=== PATIENT | female | born 1935 | race Caucasian/White ===

== ENCOUNTER 2018-07-22 10:07 | Day surgery (SDC) | payer MEDICARE ==
[2018-07-22] MEDS ORDERED: ONDANSETRON HCL IV 4 MG/2 ML VIAL IVP ONE (10:08)
[2018-07-22] MEDS ORDERED: SEVOFLURANE 250 ML INH ONE (10:08)
[2018-07-22] MEDS ORDERED: ROCURONIUM BROMIDE 50MG/5ML VIAL IV ONE (10:08)
[2018-07-22] MEDS ORDERED: BUPIVACAINE 0.25% W/EPI MPF 30ML VIAL IVP ONE (10:08)
[2018-07-22] MEDS ORDERED: FENTANYL PF 100MCG/2ML VIAL IV ONE (10:08)
[2018-07-22] MEDS ORDERED: PROPOFOL 10 MG/ML VIAL IV ONE (10:08)
[2018-07-22] MEDS ORDERED: LIDOCAINE 2% MDV (20MG/ML) 20ML VIAL IV ONE (10:08)
[2018-07-22] MEDS ORDERED: SUCCINYLCHOLINE 20 MG/ML 10ML IVP ONE (10:08)
[2018-07-22] MEDS: ONDANSETRON HCL IV 4 MG/2 ML VIAL IV ONE (10:34)
[2018-07-22] MEDS: SODIUM CHLORIDE 0.9% 500 ML IV ONE (10:34)
--- NOTE | 2018-07-22 10:34 | Emergency Department Record ---
History of Present Illness - General Chief complaint: Dehydration Stated complaint: DEHYDRATED Time Seen by Provider: 07/22/18 10:21 Source: Patient Mode of Arrival: Ambulatory Limitations: No limitations - History of Present Illness Initial comments: The patient is here due to diffuse AP for 2-3 days with intermittent nausea, vomiting, and loose stools. She also feels like she has abdominal bloating. The patient has had no abdominal surgeries in the past and never had a colononoscopy. She also has no PCP and takes no medicines. MD Complaint: Generalized weakness Onset/Timin -: Days(s) Severity: Moderate Severity scale (1-10): 5 Quality: Aching - [place] Coma Scale Eye Response: (4) Open spontaneously Motor Response: (6) Obeys commands Verbal Response: (5) Oriented Orly Total: 15 - Related Data Home Medications Medication Instructions Recorded Confirmed Last Taken No Home Med [NO HOME MEDS] 07/22/18 07/22/18 Unknown Allergies Allergy/AdvReac Type Severity Reaction Status Date / Time No Known Drug Allergies Allergy Verified 07/22/18 10:20 Travel Screening - Travel/Exposure Within Last 30 Days Have you traveled within the last 30 days?: No - Travel/Exposure Within Last Year Have you traveled outside the [place] in the last year?: No - Additonal Travel Details Have you been exposed to anyone with a communicable illness?: No - Travel Symptoms Symptom Screening: None Review of Systems Constitutional: Denies: Chills, Fever Eyes: Denies: Eye discharge ENT: Denies: Congestion Respiratory: Denies: Cough, Dyspnea Cardiovascular: Denies: Arrhythmia, Chest pain Endocrine: Denies: Fatigue Gastrointestinal: Reports: Abdominal pain, Diarrhea, Nausea, Vomiting Genitourinary: Denies: Dysuria Musculoskeletal: Denies: Arthralgia Skin: Denies: Bruising Past Medical History - SOCIAL HISTORY Smoking Status: Never smoker Alcohol Use: Occasional Drug Use: None - RESPIRATORY Hx Respiratory Disorders: No - CARDIOVASCULAR Hx Cardio Disorders: No Hx Hypertension: Yes - NEURO Hx Neuro Disorders: No - GI Hx GI Disorders: No - Hx Genitourinary Disorders: No - ENDOCRINE Hx Endocrine Disorders: No Hx Diabetes: No Hx Thyroid Disease: No - MUSCULOSKELETAL Hx Musculoskeletal Disorders: Yes Hx Arthritis: Yes - PSYCH Hx Psych Problems: No - HEMATOLOGY/ONCOLOGY Hx Hematology/Oncology Disorders: No Hx Anemia: No Hx Blood Disorders: No Hx Bruising: No Hx Cancer: No Family Medical History Any Significant Family History?: Yes Family Hx Comment (NOT TO BE USED IN PLACE OF ITEMS BELOW): denies Hx Cancer: Mother Physical Exam - General General Appearance: Alert, Oriented x3, Cooperative, No acute distress - Head Head exam: Atraumatic, Normocephalic, Normal inspection - Eye Eye exam: Normal appearance, PERRL - ENT Throat exam: Normal inspection. negative: Tonsillar erythema, Tonsillar exudate - Neck Neck exam: Normal inspection, Full ROM. negative: Tenderness - Respiratory Respiratory exam: Normal lung sounds bilaterally. negative: Respiratory distress - Cardiovascular Cardiovascular Exam: Regular rate, Normal rhythm, Normal heart sounds - GI/Abdominal GI/Abdominal exam: Soft, Tenderness (There is diffuse mild abdominal tenderness in all 4 quads.). negative: Rebound, Rigid - Extremities Extremities exam: Normal inspection, Full ROM, Normal capillary refill. negative: Tenderness - Back Back exam: Reports: Normal inspection - Neurological Neurological exam: Alert, Normal gait. negative: Abnormal gait, Motor sensory deficit - Psychiatric Psychiatric exam: negative: Anxious Course Vital Signs 07/22/18 10:15 Temperature 97.4 F L Pulse Rate 95 H Respiratory 18 Rate Blood Pressure 171/72 Pulse Ox 96 - Reevaluation(s) Reevaluation #1: The patient is doing very well at this time. She states her nausea is improved and her pain is controlled and she is declining any pain medicines. I did discuss the CT results with her and the need for an operation due to acute Appendicitis. I then did discuss the case with Dr. Thakkar and he will come and take the patient to surgery. 07/22/18 11:25 Medical Decision Making - Data Complexity MDM Data: Labs Ordered and/or Reviewed, X-Ray Ordered and/or Reviewed - Lab Data Result diagrams: 07/22/18 10:31 07/22/18 10:31 - Radiology Data Radiology results: Report reviewed (CT: Acute Appendicitis with an appendicolith and fat stranding. No abscess and no definite perforation.) Disposition Disposition: Admit Clinical Impression: Appendicitis Qualifiers: Appendicitis type: acute appendicitis Acute appendicitis type: unspecified acute appendicitis type Qualified Code(s): K35.80 - Unspecified acute appendicitis Disposition: Still a Patient at [facility] Decision to Admit: Admit from ER Decision to Admit Date: 07/22/18 Decision to Admit Time: 11:44 Accepting Physician: Ariane Time Discussed w/Accepting Physician: 11:44 Condition: (2) Stable Forms: Patient Portal Access Time of Disposition: :44 Quality - Quality Measures Quality Measures: N/A - Blood Pressure Screening View Details: Yes Does Patient Have Any of the Following: No Blood Pressure Classification: Hypertensive Reading Systolic Measurement: 171 Diastolic Measurement: 72 Screening for High Blood Pressure: < First Hypertensive BP, F/U Documented > [ [id number]] First Hypertensive Follow-up Interventions: Referral to alternative/primary care provider.
[2018-07-22 10:36] LABS: HEMATOCRIT 37.3 % (35.0-47.0); HEMOGLOBIN 13.1 gm/dl (11.6-16.0); MEAN CELL VOLUME 96.4 fl (81-97); MEAN CORPUSCULAR HEMOGLOBIN 33.9 pg (27-33); MEAN CORPUSCULAR HGB CONC 35.1 g/dl (32-36); MEAN PLATELET VOLUME 8.7 fl (7.4-10.4); PLATELET COUNT 333 K/uL (130-400); RED BLOOD COUNT 3.87 M/uL (3.80-5.40); WHITE BLOOD COUNT W/O DIFF 15.7 K/uL (4.2-12.2)
[2018-07-22 10:46] LABS: BLOOD UREA NITROGEN 17 mg/dL (8-23); CREATININE 0.6 mg/dL (0.5-0.9); EST GLOMERULAR FILTRATION RATE > 60 mL/min; LIPASE 16 U/L (13-60); PLATELET ESTIMATE NORMAL (NORMAL); TOTAL PROTEIN 7.6 g/dL (6.6-8.7)
[2018-07-22 10:48] LABS: GLUCOSE,RANDOM 120 mg/dL (74-109)
[2018-07-22 10:51] LABS: ALBUMIN 3.9 g/dL (4.0-5.0); ALKALINE PHOSPHATASE 73 U/L (35-104); ALT/SGPT 18 U/L (<33); AST/SGOT 18 U/L (10.0-35.0); BILIRUBIN,DIRECT 0.2 mg/dL (0-0.3)
[2018-07-22] MEDS: ERTAPENEM SODIUM 1 G in 0.9 % SODIUM CHLORIDE 100ML 100 ML IVPB ONE (11:32)
--- NOTE | 2018-07-23 09:31 | CT SCAN REPORT ---
EXAM: CT OF THE ABDOMEN AND PELVIS WITHOUT CONTRAST HISTORY: GENERALIZED ABDOMINAL PAIN AND BLOATING, ELEVATED WHITE BLOOD CELL COUNT. TECHNIQUE: Noncontrast CT of the abdomen and pelvis was obtained. Comparison: None. FINDINGS: Calcified granulomas in the left lung base. Linear scarring atelectasis in both lung bases. Unremarkable noncontrast CT appearance of the liver, gallbladder, adrenal glands , pancreas, and spleen. No hydronephrosis. No intrarenal or ureteral calculi are seen. Unremarkable appearance of the urinary bladder. Multiple coarse calcifications within the uterus, likely fibroids. The fluid containing appendix appears dilated, measuring up to 15 mm in transverse diameter with a prominent appendicolith at the base surrounding fat stranding and edema. Tiny foci of gas near the medial margin of the cecum ( series 3 image 97), possible intraluminal gas versus tiny focus of free air. No large fluid collection is seen. Multiple fluid containing nondilated small bowel loops. No focal colonic thickening or inflammatory change. Diffuse calcification of the aortoiliac arterial access without aneurysmal dilation. Scattered degenerative changes of the lumbar spine, most pronounced at L5-S1 where there is significant disk height loss. IMPRESSION: 1. FINDINGS CONSISTENT WITH ACUTE APPENDICITIS. TINY FOCI OF GAS NEAR THE MEDIAL MARGIN OF THE CECUM MAY BE INTRALUMINAL VERSUS LOCALIZED MICROPERFORATION. NO DRAINABLE FLUID COLLECTION IS IDENTIFIED. 2. FLUID CONTAINING NONDILATED SMALL BOWEL LOOPS, POSSIBLY REACTIVE ILEUS. FINDINGS WERE DISCUSSED WITH THE ORDERING PROVIDER DR. MCLEOD AT TIME OF DICTATION. JOB NUMBER: [id number] MTDD
--- NOTE | 2018-07-24 08:50 | Operative Note ---
DATE OF SURGERY: 07/22/2018 Surgeon: Ezequiel Thakkar DO PREOPERATIVE DIAGNOSIS: Acute appendicitis. POSTOPERATIVE DIAGNOSIS: Ruptured appendix. OPERATION: Laparoscopic appendectomy. Indication: The patient is an 82-year-old female who came to the hospital with a 2-day history of abdominal pain. Workup was done which did include CT scan and laboratory values. The patient had findings consistent with acute appendicitis with possible rupture. We did discuss appendectomy. Risks, benefits, and alternatives were discussed. Risks include bleeding, infection, postop abscess formation, delayed repeat operation, need for further surgery. She understood this fully. Therefore, consent was signed and questions answered. PROCEDURE: She was taken to the operating room and placed in the supine position. General anesthesia was administered per the department of anesthesia. The patient's left arm was tucked to the side. Her abdomen was prepped and draped in the usual sterile fashion. Adequate timeout was performed. She did receive preoperative antibiotic as well as DVT prophylaxis. At this time, the infraumbilical region was anesthetized with a total of 5 mL of 0.25% Sensorcaine with epinephrine. A 2 cm infraumbilical incision was made. This was carried down to the anterior rectus fascia. This was incised. Rocio clamps were placed on the fascial edges and brought up into the wound. Stay sutures of 0 Vicryl were placed. Posterior rectus sheath was identified and incised. The peritoneal cavity was entered bluntly. At this time, a 10 mm blunt Chad port was placed. Adequate pneumoperitoneum established. Additional 5 mm right subcostal and 5 mm suprapubic ports were placed. The patient was rotated into Trendelenburg position with rotation to the left. The patient had a pyogenic membrane in the mid abdomen consistent with a ruptured appendix. The appendix was identified. There was a hole, perforated necrotic area in the mid appendix. This was lifted anteriorly. This was swept away from the cecum as well as ileum. The fat pad of the ileum was swept away as well. The mesoappendix was taken down serially with the Abimael harmonic. At this time, an Endo-DAMEON stapling device was used to transect the appendix at the base of the cecum. This was placed in the EndoCatch bag and brought out through the umbilical port. The peritoneal cavity was then irrigated with approximately 2 liters of normal saline and aspirated until clear. Again, the patient had a small pyogenic membrane around the ileum consistent with the rupture. I did elect to place a drain in the right pericolic gutter with the tip extending down to the pelvis. This was brought out through the suprapubic port. At this time, patient was leveled out, pneumoperitoneum was released. All ports were removed. The fascia was closed with 0 Vicryl in a [id number] fashion. The skin in 2 ports was closed with 4-0 Vicryl. Drain was sutured in with 3-0 nylon. JULIANNED
--- NOTE | 2018-07-24 15:10 | Operative Note ---
DATE OF SURGERY: 07/22/2018 Surgeon: Ezequiel Thakkar DO PREOPERATIVE DIAGNOSIS: Acute appendicitis. POSTOPERATIVE DIAGNOSIS: Ruptured appendix. OPERATION: Laparoscopic appendectomy with drain placement. Indication: The patient is an 82-year-old female who is having right lower quadrant pain. She was seen in [facility] where a full workup was done. This did include CT scan and laboratory values. CT scan did show findings consistent with acute appendicitis with potential extraluminal air. We did discuss appendectomy. Risks, benefits, and alternatives were discussed. Risks include but are not limited to bleeding, infection, postop abscess formation, wound infection. She understood this fully. Therefore, consent was signed and questions answered. PROCEDURE: She was taken to the operating room and placed in the supine position. General anesthesia was administered per the department of anesthesia. The patient's left arm was tucked to the side. Her abdomen was prepped and draped in the usual sterile fashion. At this time, adequate timeout was performed. She did receive preoperative antibiotic as well as DVT prophylaxis. At this time, the infraumbilical region was anesthetized with a total of 3 mL of 0.25% Sensorcaine with epinephrine. A 2 cm infraumbilical incision was made. This was carried down to the anterior rectus fascia. This was incised. Rocoi clamps were placed on the fascial edges and brought up into the wound. Stay sutures of 0 Vicryl were placed. Posterior rectus sheath was identified and incised. The peritoneal cavity was entered bluntly. At this time, a 10 mm blunt Chad port was placed. Adequate pneumoperitoneum established. Under direct visualization, additional 5 mm right subcostal and 5 mm suprapubic ports were placed. The patient was rotated into Trendelenburg position with rotation to the left. Examination was done. The patient had a purulent fluid and a pyogenic membrane in her right mid abdomen consistent with a ruptured appendix. The appendix was located in the right mid abdomen. It was covered by her terminal ileum as well as the fat pad. The tip was seen, lifted anteriorly. The ileum and fat pad of the ileum were swept medially exposing the appendix. The mesoappendix was taken down serially with the Abimael harmonic at the base of the cecum. At this time, an Endo-DAMEON 45 mm blue staple load was used to transect the appendix at the base of the cecum. This was placed in the EndoCatch bag and brought out through the umbilical port. Staple line was inspected and noted to be free of any leak. No bleeding noted. The peritoneal cavity was then irrigated with approximately 2 liters of normal saline. A #10 flat Ayaz-Tijerina drain was placed along the right pericolic gutter and brought out through the suprapubic port. At this time, patient was leveled out, pneumoperitoneum was released. All ports were removed. The drain was sutured in with 3-0 nylon. The fascia was closed with 0 Vicryl in a [id number] fashion. The skin in both ports was closed with 4-0 Vicryl. She was taken to the recovery room in satisfactory condition. FINDINGS AT THE TIME OF SURGERY: Ruptured appendix. MTDD
== END 2018-07-22 14:40 | disposition still patient (30) ==
LOC: SUR 10:07 → ER 11:58 → EDSTATUS 13:46 → SUR 14:40
PROVIDERS: ATTEND Surgery
DX: K35.32 Acute appendicitis with perforation, localized peritonitis, and gangrene, without abscess (principal); R10.84 Generalized abdominal pain; R11.2 Nausea with vomiting, unspecified; I10 Essential (primary) hypertension
CPT/HCPCS: 74176; 80048; 80051; 80076; 83690; 85027; 96361; 96365; 96375; 99285; J0330; J2405